=== PATIENT | male | born 1995 | race Caucasian/White ===

== ENCOUNTER 2019-08-01 08:07 | Outpatient (CLI) | payer BC, MEDICAID | END 2019-08-01 23:59 | disposition home or self-care (01) | LOC: CFH 08:07 | PROVIDERS: ATTEND Family Medicine | DX: Z01.810 Encounter for preprocedural cardiovascular examination (principal); I25.9 Chronic ischemic heart disease, unspecified; Z94.0 Kidney transplant status | CPT/HCPCS: 78452; 93017; A9502 ==

== ENCOUNTER 2019-09-22 12:29 | Day surgery (SDC) | payer BC, MEDICAID ==
[~2019-09-22] VITALS: Ht 177.8 cm; Wt 95.3 kg
[2019-09-22] MEDS ORDERED: SODIUM CHLORIDE 0.9% 1,000 ML IV SCH (12:40)
[2019-09-22] MEDS ORDERED: BIVALIRUDIN 250 MG ONE (12:57)
[2019-09-22] MEDS ORDERED: TICAGRELOR 90 MG TABLET ONE (12:57)
[2019-09-22] MEDS ORDERED: MIDAZOLAM 1 MG/ML, 5ML ONE (12:57)
[2019-09-22] MEDS ORDERED: VERAPAMIL 2.5 MG/ML, 2ML ONE (12:57)
[2019-09-22] MEDS ORDERED: FENTANYL PF 100 MCG/2ML ONE (12:57)
[2019-09-22 12:58] VITALS: BP 134/83
[2019-09-22] MEDS ORDERED: LIDOCAINE-MPF 1%, 5ML ONE (12:58)
[2019-09-22] MEDS ORDERED: HEPARIN 1,000 UNITS/ML, 10ML ONE (12:58)
[2019-09-22] MEDS ORDERED: CINA60TA PO (13:08)
[2019-09-22] MEDS ORDERED: AMLO-150 PO (13:08)
[2019-09-22] MEDS ORDERED: PRED5TAB PO (13:08)
[2019-09-22] MEDS ORDERED: MYCO500T3 PO (13:08)
[2019-09-22] MEDS ORDERED: TACR1CAP5 PO (13:08)
[2019-09-22] MEDS ORDERED: CYCL5TAB PO (13:08)
[2019-09-22] MEDS ORDERED: SEVE800T8 PO (13:08)
[2019-09-22] MEDS ORDERED: PANT40TA5 PO (13:08)
[2019-09-22] MEDS ORDERED: LABE100T6 PO (13:08)
== END 2019-09-22 15:29 | disposition home or self-care (01) ==
LOC: CACL 12:29
PROVIDERS: ATTEND Internal Medicine Cardiovascular Disease
DX: R94.39 Abnormal result of other cardiovascular function study (principal); I20.9 Angina pectoris, unspecified; I12.0 Hypertensive chronic kidney disease with stage 5 chronic kidney disease or end stage renal disease; N18.6 End stage renal disease; I51.7 Cardiomegaly; Z79.899 Other long term (current) drug therapy
CPT/HCPCS: 93458; 99156; C1769; C1894; J1644; J2250; J3010; Q9967; J0583